=== PATIENT | male | born 1975 | race Two or more races ===

== ENCOUNTER → 2018-02-17 | Day surgery (SDC) | payer OTHER ==
[~2018-02-17] VITALS: Ht 172.7 cm; Wt 90.7 kg
[2018-02-17 07:47] VITALS: BP 163/99
[2018-02-17 13:31] VITALS: BP 140/78
== END | disposition home or self-care (01) ==
LOC: DS 07:23 → EDBD 07:23 → DS 08:30 → OR 10:30 → DS 10:30
PROVIDERS: Neuromusculoskeletal Medicine, Sports Medicine
PROC: 0LN70ZZ Release Right Hand Tendon, Open Approach (ICD-10-PCS; principal; 2018-02-17 08:30)
DX: S66.126A Laceration of flexor muscle, fascia and tendon of right little finger at wrist and hand level, initial encounter (principal); X58.XXXA Exposure to other specified factors, initial encounter; Y92.9 Unspecified place or not applicable; Y99.0 Civilian activity done for income or pay
CPT/HCPCS: J0690; J1170; J2405; J2704; J3010; J3490; J7120